=== PATIENT | male | born 1985 | race Caucasian/White ===

== ENCOUNTER 2021-01-20 13:38 | Outpatient (REF) | payer OTHER, SELFPAY | END 2021-01-20 13:39 | disposition home or self-care (01) | LOC: HO.LAB 13:38 | PROVIDERS: Visit Provider Internal Medicine | DX: Z20.822 Contact with and (suspected) exposure to COVID-19 (principal) | CPT/HCPCS: C9803; U0003; U0005 ==

== ENCOUNTER 2021-11-01 11:31 | Emergency (ER) | payer BC, SELFPAY ==
[2021-11-01 11:42] VITALS: BP 120/66; PULSE 61; RESP 18; TEMP 36.4; O2SAT 97; BMI 23.6
--- NOTE | 2021-11-01 13:26 | ED.WOUNDLAC ---
HPI - Wound/Laceration General Chief Complaint: Wound/Laceration Stated Complaint: Finger lac Time Seen by Provider: 11/01/21 13:25 Source: patient Mode of arrival: ambulatory Limitations: no limitations History of Present Illness HPI narrative: Came in for evaluation of left middle finger laceration. Patient cut his left middle finger while working yesterday at 09:00 o'clock morning (30 hours ago), patient could not seek medical attention until now. Able to move all fingers, patient is left-hand dominant. To remember the last tetanus booster update. Related Data Previous Rx's Medication Instructions Recorded bacitracin 500 unit/gram topical 1 appl topical Q8H #28 grams 11/01/21 ointment Allergies Allergy/AdvReac Type Severity Reaction Status Date / Time amoxicillin [AMOXICILLIN] Allergy Unknown UNK Verified 11/01/21 13:26 clavulanic acid Allergy Unknown UNK Verified 11/01/21 13:26 [From AUGMENTIN] Review of Systems Review of Systems: All other systems are reviewed and are negative Constitutional: Reports as per HPI and Reports no additional constitutional complaints Eyes: Reports as per HPI and Reports no additional eye complaints Reports system reviewed and no additional complaints, except as documented Cardiovascular: Reports as per HPI and Reports no additional cardiovascular complaints Respiratory: Reports as per HPI and Reports no additional respiratory complaints Gastrointestinal: Reports as per HPI and Reports no additional gastrointestinal complaints Genitourinary: Reports no additional female genitourinary complaints Musculoskeletal: Reports no additional musculoskeletal complaints Skin/Breast: Reports system reviewed and no additional complaints, except as docu Psychiatric: Reports no additional psychiatric complaints Endocrine: Reports no additional endocrine complaints Hematologic/Lymphatic: Reports no additional hematologic/lymphatic complaints Allergic/Immunologic: Reports no additional allergic/immunologic complaints Reports system reviewed and no additional complaints, except as documented and Reports Abnormal speech present [facility] Social History Social History Advance Directives: No Advance Directives Information Provided: No Physical Exam Vital Signs: Vital Signs: Last Vital Signs Temp 97.5 F 11/01/21 11:42 Pulse 61 11/01/21 11:42 Resp 18 11/01/21 11:42 BP 120/66 11/01/21 11:42 Pulse Ox 97 11/01/21 11:42 O2 Del Method 11/01/21 11:42 BMI result Body Mass Index 23.6 Vital signs have been reviewed as appeared to be correct. Blood pressure normal. Heart rate normal. Respiration rate normal. Temperature normal. Oxygen saturation normal. Appearance: Alert. Oriented X3. No acute distress. Head: Normal external exam. Normocephalic. Atraumatic. No Lawrence signs noted. No raccoon eyes noted Eyes: PERRLA. EOMI. Conjunctiva and sclera normal. Eyelids normal. ENT: TM's Normal. Pharynx normal. Uvula midline. Moist mucous membranes. No trismus noted. No drooling noted. No muffled voice noted. Neck: Normal inspection. Neck supple. FROM. No adenopathy. Thyroid Normal. No meningeal signs. No neck mass noted. CVS: Normal heart rate and rhythm. Heart sound normal. No murmurs noted. Pulses normal throughout. Respiratory: No respiratory distress. Painless inspiration. Breath sounds normal. No wheezes/rales/rhonchi noted. Chest nontender. No accessory muscle usage noted or decreased air movement noted. Abdomen: Soft and nontender. Bowel sounds normal in all 4 quadrants. No distention noted. No organomegaly noted. No visible injury noted. Back: No CVA tenderness. Full range of motion noted. Skin: Skin warm and dry. Normal skin color. Normal skin turgor. No rashes/lesions/lacerations noted. Extremities: Left middle finger exam: 1.5 cm laceration on the lateral aspect of the proximal phalanx, no active bleeding, no ligamentous injury, able to flex and extend left middle finger. No fluctuation, no pus formation. Neuro: Oriented X 3. Cranial nerve exam: II-XII are grossly intact No motor deficit. No sensory deficit. Reflexes normal. Course Course Course Narrative: Left middle finger laceration for 30 hours. Will not close the wound by suturing high risk of infection. Will update tetanus booster and will cover with prophylactic antibiotic. Discharge Plan Discharge Clinical Impression: Laceration of left middle finger Patient Disposition: Home, Self-Care Instructions: Laceration Without Closure (ED) Prescriptions: New bacitracin 500 unit/gram ointment 1 appl topical Q8H Qty: 28 0RF Referrals: Physician,None [Primary Care Provider] -
[2021-11-01] MEDS: Diphth,Pertus(ACell),Tet Adult 0.5 ML SYRINGE IM (13:29)
== END 2021-11-01 13:42 | disposition home or self-care (01) ==
PROVIDERS: Emergency Provider Emergency Medicine
DX: S61.213A Laceration without foreign body of left middle finger without damage to nail, initial encounter (principal); S60.413A Abrasion of left middle finger, initial encounter; X58.XXXA Exposure to other specified factors, initial encounter; Y93.9 Activity, unspecified; Y92.9 Unspecified place or not applicable; Y99.0 Civilian activity done for income or pay
CPT/HCPCS: 90471; 90715; 99282; 99284